=== PATIENT | female | born 1940 | race Caucasian/White ===

== ENCOUNTER 2017-01-29 09:20 | Emergency (ER) | payer OTHER ==
[~2017-01-29] VITALS: Ht 170.2 cm; Wt 72.6 kg
[~2017-01-29 09:20] MED LIST: AUGMENTIN 875875 MG PO; CARDIZEM CD 18180 M3 PO; CELEXA20 MG PO; HYDROCODON-ACE1 EAC7 PO; HYDROCODONE-AP1 EAC6 PO; KEPPRA XR750 MG PO; LEVAQUIN 750 M750 MG PO; LEVOTHYROXIN0.088 MG PO; ONDANSETRON HCL4 M2 PO; PACERONE 200 M200 M1 PO; PROBIOTIC1 EAC2 PO; SENNA8.6 MG PO; VITAMIN B-12100 MCG PO; XARELTO10 MG PO
[2017-01-29] MEDS ORDERED: ZOFRAN4 MG PO (09:36)
[2017-01-29] MEDS ORDERED: CELEXA20 MG PO (09:37)
[2017-01-29] MEDS ORDERED: KEPPRA 500 MG500 M1 PO (09:37)
[2017-01-29] MEDS ORDERED: TYLENOL325 MG PO (09:38)
[2017-01-29] MEDS ORDERED: HYDROCODONE-AP1 EAC6 PO ×2 (09:38→09:42)
[2017-01-29] MEDS ORDERED: TESSALON PERLE100 MG PO (09:39)
[2017-01-29] MEDS ORDERED: FEVERALL JR 32325 M1 RECTAL (09:39)
[2017-01-29] MEDS ORDERED: LASIX 20 MG TAB20 MG PO (09:39)
[2017-01-29] MEDS ORDERED: MSL20MG/ML PO ×2 (09:40→09:49)
[2017-01-29] MEDS ORDERED: LORAZEPAM 22 MG/1 ML PO ×2 (09:41→09:47)
[2017-01-29] MEDS ORDERED: PHENERGAN12.5 M2 RECTAL (09:42)
[2017-01-29] MEDS ORDERED: SENNA8.6 MG PO (09:43)
[2017-01-29] MEDS ORDERED: CEPACOL SORE T1 EAC7 MM (09:44)
[2017-01-29] MEDS ORDERED: LEVSIN-SL0.125 MG SL (09:45)
== END 2017-01-29 12:50 | disposition home or self-care (01) ==
LOC: ER 09:20
DX: S09.90XA Unspecified injury of head, initial encounter (principal); S80.11XA Contusion of right lower leg, initial encounter; S70.01XA Contusion of right hip, initial encounter; S90.01XA Contusion of right ankle, initial encounter; F10.99 Alcohol use, unspecified with unspecified alcohol-induced disorder; K21.9 Gastro-esophageal reflux disease without esophagitis; Z86.39 Personal history of other endocrine, nutritional and metabolic disease; Z85.841 Personal history of malignant neoplasm of brain; Z88.8 Allergy status to other drugs, medicaments and biological substances; W18.39XA Other fall on same level, initial encounter; Y93.89 Activity, other specified; Y92.002 Bathroom of unspecified non-institutional (private) residence as the place of occurrence of the external cause; Y99.8 Other external cause status